=== PATIENT | female | born 1975 | race Caucasian/White ===

== ENCOUNTER 2016-08-11 14:21 | Emergency (ER) | payer MEDICAID ==
[~2016-08-11] VITALS: Ht 162.6 cm; Wt 59.0 kg
[2016-08-11 15:15] VITALS: BP 129/71
== END 2016-08-11 15:15 | disposition home or self-care (01) ==
LOC: ER 14:27
DX: N75.0 Cyst of Bartholin's gland (principal); F41.9 Anxiety disorder, unspecified
CPT/HCPCS: A4606; Z7502; Z7610

== ENCOUNTER 2025-01-13 13:03 | Emergency (ER) | payer MEDICAID, OTHER ==
[~2025-01-13] VITALS: Ht 160 cm; Wt 55.8 kg
[2025-01-13 13:27] VITALS: BP 128/82; TEMP 98.2; O2SAT 98
== END 2025-01-13 14:06 | disposition home or self-care (01) ==
LOC: ER 13:18
DX: S31.119D Laceration without foreign body of abdominal wall, unspecified quadrant without penetration into peritoneal cavity, subsequent encounter (principal); F32.A Depression, unspecified; Z48.00 Encounter for change or removal of nonsurgical wound dressing; X58.XXXD Exposure to other specified factors, subsequent encounter